=== PATIENT | female | born 1995 | race Caucasian/White ===

== ENCOUNTER 2018-11-23 21:04 | Emergency (ER) | payer MEDICAID ==
[2018-11-23 21:11] VITALS: BP 121/79
[2018-11-23] MEDS ORDERED: DEXAMETHASONE 10 MG/ML VIAL PO STA (21:30)
[2018-11-23] MEDS ORDERED: IPRATROPIUM/ALBUTEROL 3 ML NEB INH STA (21:30)
[2018-11-23] MEDS ORDERED: ALBUTEROL NEB 2.5 MG/3 ML INH STA (21:30)
--- NOTE | 2018-11-23 21:32 | ED Physician Documentation ---
PD HPI DYSPNEA - Stated complaint Stated Complaint: SOA/COUGH - Chief complaint Chief Complaint: Resp - History obtained from History obtained from: Patient - History of Present Illness Timing - onset: Other (Patient is a history of asthma and recently has had increased wheezing and cough. The patient does continue to smoke. Symptoms have worsened over the past several days) Timing - details: Gradual onset Severity Comments: Moderate Inciting event(s): Exposure (ie smoke) Improved by: Inhaler/neb Worsened by: Coughing Associated symptoms: Cough, Wheezing. No: Fever Similar symptoms before: Diagnosis Recently seen: Not recently seen Review of Systems Constitutional: denies: Fever, Fatigue Eyes: denies: Loss of vision Ears: denies: Ear pain Nose: denies: Congestion Throat: denies: Sore throat Cardiac: denies: Chest pain / pressure Respiratory: reports: Dyspnea, Cough, Wheezing Musculoskeletal: denies: Neck pain Neurologic: denies: Generalized weakness Immunocompromised: denies: Chemotherapy PD PAST MEDICAL HISTORY - Past Medical History Past Medical History: Yes Respiratory: Asthma - Past Surgical History Past Surgical History: No - Present Medications Home Medications: Ambulatory Orders Medication Instructions Recorded Confirmed Albuterol Sulfate [Proventil Hfa 11/23/18 Inhaler] busPIRone [Buspar] 11/23/18 - Allergies Allergies/Adverse Reactions: Allergies Allergy/AdvReac Type Severity Reaction Status Date / Time No Known Drug Allergies Allergy Verified 11/23/18 21:11 - Social History Does the pt smoke?: Yes Smoking Status: Current every day smoker Does the pt drink ETOH?: No Substance Use and Type: Marijuana - Immunizations Immunizations are current?: Yes - POLST Patient has POLST: No PD ED PE NORMAL - General General: Alert and oriented X 3, No acute distress - HEENT HEENT: Atraumatic, PERRL, EOMI, Ears normal - Neck Neck: Supple, no meningeal sign - Cardiac Cardiac: RRR, Strong equal pulses - Respiratory Respiratory: No respiratory distress. No: Clear bilaterally (Bilateral expiratory wheezing) - Derm Derm: Normal color - Extremities Extremities: No deformity, No edema - Neuro Neuro: Alert and oriented X 3 - Psych Psych: Normal affect Results - Vitals Vitals: Vital Signs - 24 hr 11/23/18 11/23/18 21:07 21:38 Temperature 36.3 C L Heart Rate 91 98 Respiratory 22 16 Rate Blood Pressure 121/79 O2 Saturation 98 Oxygen O2 Source Room air PD MEDICAL DECISION MAKING - ED course ED course: On reevaluation the patient's much improved and appears appropriate for discharge and ongoing outpatient management. I advised follow-up with primary care. The patient will return to the emergency department for any worsening or any concerns Departure - Departure Disposition: 01 Home, Self Care Clinical Impression: Asthma Qualifiers: Asthma severity: moderate Asthma persistence: persistent Asthma complication type: with acute exacerbation Qualified Code(s): J45.41 - Moderate persistent asthma with (acute) exacerbation Condition: Good Instructions: Asthma Dc Comments: These follow-up with primary care for recheck and reevaluation Please return to the emergency department for worsening symptoms or any concerns
== END 2018-11-23 22:26 | disposition home or self-care (01) ==
LOC: ED 21:04
DX: J45.41 Moderate persistent asthma with (acute) exacerbation (principal); F17.200 Nicotine dependence, unspecified, uncomplicated
CPT/HCPCS: 94640; 94664; 99282; 99283

== ENCOUNTER 2018-11-27 15:36 | Outpatient (CLI) | payer MEDICAID | END 2018-11-27 15:37 | disposition home or self-care (01) | LOC: EMS 15:36 | PROVIDERS: ATTEND Surgery | DX: R06.02 Shortness of breath (principal); J45.909 Unspecified asthma, uncomplicated | CPT/HCPCS: A0425; A0427; A0999 ==

== ENCOUNTER 2018-11-27 16:01 | Emergency (ER) | payer MEDICAID ==
[2018-11-27] MEDS ORDERED: IPRATROPIUM/ALBUTEROL 3 ML NEB INH STA (17:08)
--- NOTE | 2018-11-27 17:08 | ED Physician Documentation ---
PD HPI DYSPNEA - Stated complaint Stated Complaint: SOA - Chief complaint Chief Complaint: Resp - History obtained from History obtained from: Patient - History of Present Illness Timing - onset: Last night (SOA X WEEKS BUT WORSE SINCE METH/HEROIN USE LAST NIGHT. COUGH X 7 DAYS. WAS SOBER FROM METH/HEROIN FOR A WHILE BUT RELAPSED 2 WEEKS AGO. IN [facility] FOR DRUG USE.) Review of Systems Ten Systems: 10 systems reviewed and negative Constitutional: denies: Fever, Chills Cardiac: denies: Chest pain / pressure, Palpitations Respiratory: reports: Dyspnea, Cough GI: denies: Abdominal Pain, Nausea, Vomiting Skin: reports: Reviewed and negative Musculoskeletal: reports: Reviewed and negative Psychiatric: reports: Reviewed and negative PD PAST MEDICAL HISTORY - Past Medical History Past Medical History: Yes Respiratory: Asthma - Past Surgical History Past Surgical History: No - Present Medications Home Medications: Ambulatory Orders Medication Instructions Recorded Confirmed RX: Albuterol Sulfate [Proventil 11/23/18 Hfa Inhaler] RX: busPIRone [Buspar] 11/23/18 RX: Albuterol Sulf [Ventolin Hfa 1 - 2 puffs INH Q4HR PRN #1 inhaler 11/27/18 Inhaler] RX: predniSONE [Deltasone] 20 mg PO [id number] #21 tab 11/27/18 - Allergies Allergies/Adverse Reactions: Allergies Allergy/AdvReac Type Severity Reaction Status Date / Time No Known Drug Allergies Allergy Verified 11/27/18 16:07 - Social History Does the pt smoke?: Yes Smoking Status: Current every day smoker Does the pt drink ETOH?: No Does the pt have substance abuse?: Yes Substance Use and Type: Heroin - Immunizations Immunizations are current?: Yes - POLST Patient has POLST: No PD ED PE NORMAL - Vitals Vital signs reviewed: Yes (HTN/TACHY) - General General: Alert and oriented X 3, Other (ANXIOUS, NO RESP DISTRESS) - HEENT HEENT: PERRL, EOMI - Neck Neck: Supple, no meningeal sign, No bony TTP - Cardiac Cardiac: RRR, No murmur - Respiratory Respiratory: Other (TIGHY/WHEEZY) - Abdomen Abdomen: Soft, Non tender - Back Back: No CVA TTP, No spinal TTP - Derm Derm: Normal color, Warm and dry - Extremities Extremities: No edema, No calf tenderness / cord - Neuro Neuro: Alert and oriented X 3, Normal speech - Psych Psych: Normal mood, Normal affect Results - Vitals Vitals: Vital Signs - 24 hr 11/27/18 11/27/18 11/27/18 16:03 17:12 17:32 Temperature 36.3 C L Heart Rate 152 H 115 H 108 H Respiratory 20 16 18 Rate Blood Pressure 140/106 H 114/76 O2 Saturation 96 97 11/27/18 11/27/18 19:03 19:22 Temperature Heart Rate 105 H 115 H Respiratory 18 20 Rate Blood Pressure 112/61 O2 Saturation 97 Oxygen O2 Source Room air - EKG (time done) 1722 Rate: Rate (enter#) (106) Rhythm: Sinus tachycardia Williams: Normal Intervals: Normal OK QRS: Normal Ischemia: Non specific changes Computer interpretation: Agree with computer - Rads (name of study) 2v chest Radiology: EMP read contemporaneously (normal) PD MEDICAL DECISION MAKING - ED course ED course: 23-year-old woman with history of asthma presents with exacerbation of same. Differential diagnosis also include pulmonary edema related to drugs but there is no evidence of this on chest x-ray. She was feeling better after nebs here and she was given a refill of her albuterol inhaler and some steroids. Departure - Departure Disposition: 01 Home, Self Care Clinical Impression: Asthma Condition: Good Record reviewed to determine appropriate education?: Yes Instructions: Asthma Dc Prescriptions: RX: Albuterol Sulf [Ventolin Hfa Inhaler] 1 - 2 puffs INH Q4HR PRN #1 inhaler PRN Reason: Shortness Of Air/Wheezing RX: predniSONE [Deltasone] 20 mg PO [id number] #21 tab Comments: Call your doctor to arrange a follow-up appointment, make the next available appointment. In the interim, return anytime if worse or if new symptoms develop. Discharge Date/Time: 11/27/18 19:23
--- NOTE | 2018-11-27 18:15 | XRAY Report ---
Reason: DYSPNEA Procedure Date: 11/27/2018 Accession Number: [id number] / [id number] Procedure: XR - Chest 2 View X-Ray CPT Code: 58259 FULL RESULT: EXAM: CHEST RADIOGRAPHY EXAM DATE: 11/27/2018 05:46 PM. CLINICAL HISTORY: Dyspnea for 2 days. Nonproductive cough for 2 weeks. COMPARISON: None. TECHNIQUE: 2 views. FINDINGS: Lungs/Pleura: No focal opacities evident. No pleural effusion. No pneumothorax. Normal volumes. Mediastinum: Heart and mediastinal contours are unremarkable. Other: No bony abnormality noted. IMPRESSION: Normal 2-view chest radiography. RADIA
[2018-11-27] MEDS ORDERED: ALBUTEROL NEB 2.5 MG/3 ML INH STA (18:19)
[2018-11-27] MEDS ORDERED: predniSONE 20 MG TABLET PO STA (18:19)
[2018-11-27 19:23] VITALS: BP 112/61
== END 2018-11-27 19:23 | disposition home or self-care (01) ==
LOC: EDUNIT# → ED 16:01
DX: J45.909 Unspecified asthma, uncomplicated (principal); R00.0 Tachycardia, unspecified; F17.200 Nicotine dependence, unspecified, uncomplicated
CPT/HCPCS: 71046; 93005; 94640; 99283; J7512

== ENCOUNTER 2019-04-01 09:25 | Emergency (ER) | payer MEDICAID ==
[2019-04-01] MEDS ORDERED: IBUPROFEN 800 MG TABLET PO STA (11:28)
[2019-04-01] MEDS ORDERED: ALBUTEROL NEB 2.5 MG/3 ML INH STA (11:28)
--- NOTE | 2019-04-01 12:50 | ED Physician Documentation ---
PD HPI URI - Stated complaint Stated Complaint: THROAT PX - Chief complaint Chief Complaint: Heent - History obtained from History obtained from: Patient - History of Present Illness Timing - onset: Yesterday Timing duration: Days (1) Timing details: Abrupt onset Associated symptoms: Productive cough (Minimal light green phlegm without blood in it.), Other (Cold flashes). No: Fever Contributing factors: No: Sick contact Similar symptoms before: Other (Has history of asthma) Recently seen: Not recently seen - Additional information Additional information: 24-year-old woman who is having difficulty to swallow or Yon and sees white patches in the back of her throat she thinks she may have strep. Her symptoms started yesterday and have gotten progressively worse. She is not taking anything for the symptoms. She does not have a stuffy nose or earache does not feel short of breath but does have a history of asthma last used her inhaler about 2 nights ago. Patient denies history of mono. 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 Review of Systems Constitutional: denies: Fever Ears: denies: Ear pain Nose: denies: Congestion Throat: reports: Sore throat Cardiac: denies: Chest pain / pressure Respiratory: reports: Cough. denies: Dyspnea PD PAST MEDICAL HISTORY - Past Medical History Past Medical History: Yes Respiratory: Asthma - Past Surgical History Past Surgical History: No - Present Medications Home Medications: Ambulatory Orders Medication Instructions Recorded Confirmed RX: Albuterol Sulfate [Proventil 11/23/18 Hfa Inhaler] RX: busPIRone [Buspar] 11/23/18 RX: Albuterol Sulf [Ventolin Hfa 1 - 2 puffs INH Q4HR PRN #1 inhaler 11/27/18 Inhaler] RX: predniSONE [Deltasone] 20 mg PO [id number] #21 tab 11/27/18 RX: Amoxicillin 875 mg PO BID #20 tablet 04/01/19 - Allergies Allergies/Adverse Reactions: Allergies Allergy/AdvReac Type Severity Reaction Status Date / Time No Known Drug Allergies Allergy Verified 04/01/19 09:36 - Social History Does the pt smoke?: Yes Smoking Status: Current every day smoker Does the pt drink ETOH?: No Does the pt have substance abuse?: Yes - Immunizations Immunizations are current?: Yes - POLST Patient has POLST: No PD ED PE NORMAL - Vitals Vital signs reviewed: Yes - General General: Alert and oriented X 3, No acute distress - HEENT HEENT: PERRL, EOMI, Ears normal, Other (Tonsils are enlarged and there is white exudate bilaterally. No scleral icterus) - Neck Neck: Supple, no meningeal sign, No adenopathy - Cardiac Cardiac: RRR, No murmur - Respiratory Respiratory: Other (Diffuse bilateral wheezing) Results - Vitals Vitals: Vital Signs - 24 hr 04/01/19 04/01/19 04/01/19 09:33 11:40 13:14 Temperature 37.9 C H Heart Rate 90 90 108 H Respiratory 14 16 16 Rate Blood Pressure 126/67 120/64 O2 Saturation 95 96 Oxygen O2 Source Room air - Labs Labs: Laboratory Tests 04/01/19 04/01/19 09:37 11:47 Infectious [place] Assay NEGATIVE Group A Strep Rapid Negative PD MEDICAL DECISION MAKING - ED course Complexity details: re-evaluated patient ED course: Lung sounds are improved. She just has a faint wheeze at the right base. She is feeling better with the breathing. Her Monospot was negative and initial strep screen was positive. She does have an exudative pharyngitis and I elected to cover her empirically with amoxicillin until the results of the culture are returned. She is also encouraged to use ibuprofen and salt water gargles to help with the pain. Departure - Departure Disposition: 01 Home, Self Care Clinical Impression: Sore throat Asthma Qualifiers: Asthma severity: mild Asthma persistence: unspecified Asthma complication type: with acute exacerbation Qualified Code(s): J45.901 - Unspecified asthma with (acute) exacerbation Condition: Good Instructions: Sore Throats Self Care, Asthma Dc Follow-Up: Jay Verma MD [Primary Care Provider] - Prescriptions: RX: Amoxicillin 875 mg PO BID #20 tablet Comments: Take the amoxicillin twice a day as prescribed. Do salt water gargles to help relieve sore throat and take ibuprofen 3 to 4 tablets every 8 hours [id number].Follow-up with your primary care provider if the sore throat is not improving. Return if you have difficulty breathing or swallowing. Discharge Date/Time: 04/01/19 13:14
[2019-04-01 13:15] VITALS: BP 120/64
== END 2019-04-01 13:14 | disposition home or self-care (01) ==
LOC: ED 09:25
DX: J02.9 Acute pharyngitis, unspecified (principal); J45.901 Unspecified asthma with (acute) exacerbation; F17.200 Nicotine dependence, unspecified, uncomplicated
CPT/HCPCS: 86308; 87070; 87430; 94640; 99283; A9270

== ENCOUNTER 2020-03-22 19:16 | Emergency (ER) | payer MEDICAID ==
[2020-03-22 19:47] VITALS: BP 152/92
[2020-03-22 20:51] LABS: BASOPHILS # (AUTO) 0.1 10^3/uL (0.0-0.1); BASOPHILS % (AUTO) 0.6 %; EOSINOPHILS # (AUTO) 0.2 10^3/uL (0.0-0.7); EOSINOPHILS % (AUTO) 2.5 %; HGB - HEMOGLOBIN 14.4 g/dL (12.0-16.0); LYMPHOCYTES % (AUTO) 21.8 %; MEAN CORPUSCULAR HEMOGLOBIN 30.6 pg (27.0-31.0); MEAN CORPUSCULAR HGB CONC 34.5 g/dL (32.0-36.0); MEAN CORPUSCULAR VOLUME 88.7 fL (81.0-99.0); MEAN PLATELET VOLUME 8.9 fL (7.9-10.8); MONOCYTES # (AUTO) 0.5 10^3/uL (0.0-1.0); MONOCYTES % (AUTO) 5.7 %; NEUTROPHILS # (AUTO) 6.2 10^3/uL (1.5-6.6); NEUTROPHILS % (AUTO) 69.1 %; PLT - PLATELET COUNT 251 10^3/uL (130-450); RED CELL DISTRIBUTION WIDTH 11.9 % (12.0-15.0)
--- NOTE | 2020-03-22 20:55 | ED Physician Documentation ---
PD HPI MHE - Stated complaint Stated Complaint: MED CLEARANCE FOR DETOX - Chief complaint Chief Complaint: General - History obtained from History obtained from: Patient - History of Present Illness Primary symptom: Medical clearance Timing - onset: Today Contributing factors: Substance abuse - drugs Similar symptoms before: Diagnosis (heroin and methamphetamine abuse.) Recently seen: Not recently seen - Additional information Additional information: 25-year-old female with a history of substance abuse including meth and heroin has coming to the emergency department today seeking medical clearance to go to a detox facility. She has been to this detox facility previously and was successful with this for over a year. She states that she has been using both methamphetamine and heroin today and she does not usually have a significant problem with withdrawal. She is not currently ill. She does have a history of asthma and has an inhaler that she uses on a regular basis. Review of Systems Constitutional: denies: Fever, Chills, Myalgias, Fatigue Eyes: denies: Decreased vision Ears: denies: Ear pain Nose: denies: Congestion Throat: denies: Sore throat Cardiac: denies: Chest pain / pressure, Palpitations Respiratory: reports: Wheezing. denies: Dyspnea, Cough GI: denies: Abdominal Pain, Nausea, Vomiting : denies: Dysuria, Frequency Skin: denies: Rash Musculoskeletal: denies: Neck pain, Back pain, Extremity pain Neurologic: denies: Generalized weakness, Focal weakness, Numbness PD PAST MEDICAL HISTORY - Past Medical History Respiratory: Asthma - Past Surgical History Past Surgical History: No - Present Medications Home Medications: Ambulatory Orders Medication Instructions Recorded Confirmed Albuterol Sulf [Ventolin Hfa 1 - 2 puffs INH Q4HR PRN #1 inhaler 11/27/18 Inhaler] - Allergies Allergies/Adverse Reactions: Allergies Allergy/AdvReac Type Severity Reaction Status Date / Time No Known Drug Allergies Allergy Verified 04/01/19 09:36 - Social History Does the pt smoke?: Yes Smoking Status: Current every day smoker Does the pt drink ETOH?: No Does the pt have substance abuse?: Yes - Immunizations Immunizations are current?: Yes - POLST Patient has POLST: No PD ED PE NORMAL - Vitals Vital signs reviewed: Yes (Tachycardic and hypertensive) - General General: Alert and oriented X 3, No acute distress, Well developed/nourished - HEENT HEENT: Atraumatic, PERRL, EOMI, Ears normal, Moist mucous membranes, Pharynx benign, Dentition benign - Neck Neck: Supple, no meningeal sign, No bony TTP - Cardiac Cardiac: No murmur, Other (Tachycardic to 115) - Respiratory Respiratory: No respiratory distress, Other (Scattered wheezes bilaterally) - Abdomen Abdomen: Soft, Non tender - Back Back: No CVA TTP, No spinal TTP - Derm Derm: Normal color, Warm and dry, No rash - Extremities Extremities: No deformity, No edema, No calf tenderness / cord - Neuro Neuro: Alert and oriented X 3, pedorthist 2-12 intact, No motor deficit, No sensory deficit, Normal speech Eye Opening: Spontaneous Motor: Obeys Commands Verbal: Oriented GCS Score: 15 - Psych Psych: Normal mood, Normal affect Results - Vitals Vitals: Vital Signs - 24 hr 03/22/20 19:43 Temperature 36.7 C Heart Rate 119 H Respiratory 18 Rate Blood Pressure 152/92 H O2 Saturation 97 Oxygen O2 Source Room air - Labs Labs: Laboratory Tests 03/22/20 03/22/20 03/22/20 20:45 20:45 21:06 WBC 9.0 RBC 4.70 Hgb 14.4 Hct 41.7 MCV 88.7 MCH 30.6 MCHC 34.5 RDW 11.9 L Plt Count 251 MPV 8.9 Neut # (Auto) 6.2 Lymph # (Auto) 2.0 [place] # (Auto) 0.5 Eos # (Auto) 0.2 Baso # (Auto) 0.1 Absolute Nucleated RBC 0.00 Nucleated RBC % 0.0 Sodium 139 Potassium 3.5 Chloride 105 Carbon Dioxide 25 Anion Gap 9.0 BUN 11 Creatinine 0.7 Estimated GFR (MDRD) 104 Glucose 115 H Calcium 9.5 Total Bilirubin 0.6 AST 24 ALT 22 Alkaline Phosphatase 64 Total Protein 7.6 Albumin 4.3 Globulin 3.3 Albumin/Globulin Ratio 1.3 Lipase 26 Urine Color Urine Clarity Urine pH Ur Specific [place] Urine Protein Urine Glucose (UA) Urine Ketones Urine Occult Blood Urine Nitrite Urine Bilirubin Urine Urobilinogen Ur Leukocyte Esterase Ur Microscopic Review Urine Culture Comments Urine HCG, Qual Urine Opiates Screen POSITIVE H Ur Oxycodone Screen NEGATIVE Urine Methadone Screen NEGATIVE Ur Propoxyphene Screen NEGATIVE Ur Barbiturates Screen NEGATIVE Ur Tricyclics Screen NEGATIVE Ur Phencyclidine Scrn NEGATIVE Ur Amphetamine Screen POSITIVE H U Methamphetamines Scrn NEGATIVE U Benzodiazepines Scrn NEGATIVE Urine Cocaine Screen NEGATIVE U Cannabinoids Screen NEGATIVE Ethyl Alcohol < 5.0 03/22/20 21:06 WBC RBC Hgb Hct MCV MCH MCHC RDW Plt Count MPV Neut # (Auto) Lymph # (Auto) [place] # (Auto) Eos # (Auto) Baso # (Auto) Absolute Nucleated RBC Nucleated RBC % Sodium Potassium Chloride Carbon Dioxide Anion Gap BUN Creatinine Estimated GFR (MDRD) Glucose Calcium Total Bilirubin AST ALT Alkaline Phosphatase Total Protein Albumin Globulin Albumin/Globulin Ratio Lipase Urine Color YELLOW Urine Clarity CLEAR Urine pH 6.5 Ur Specific [place] 1.020 Urine Protein NEGATIVE Urine Glucose (UA) NEGATIVE Urine Ketones NEGATIVE Urine Occult Blood NEGATIVE Urine Nitrite NEGATIVE Urine Bilirubin NEGATIVE Urine Urobilinogen 0.2 (NORMAL) Ur Leukocyte Esterase NEGATIVE Ur Microscopic Review NOT INDICATED Urine Culture Comments NOT INDICATED Urine HCG, Qual NEGATIVE Urine Opiates Screen Ur Oxycodone Screen Urine Methadone Screen Ur Propoxyphene Screen Ur Barbiturates Screen Ur Tricyclics Screen Ur Phencyclidine Scrn Ur Amphetamine Screen U Methamphetamines Scrn U Benzodiazepines Scrn Urine Cocaine Screen U Cannabinoids Screen Ethyl Alcohol PD MEDICAL DECISION MAKING - ED course Complexity details: reviewed results, re-evaluated patient, considered differential, d/w patient ED course: 25-year-old female who appears to be an excellent candidate for drug treatment is medically cleared to go to drug treatment. She has no symptoms of COVID-19. Departure - Departure Disposition: 01 Home, Self Care Clinical Impression: Drug abuse and dependence Asthma Qualifiers: Asthma severity: mild Asthma persistence: intermittent Asthma complication type: uncomplicated Qualified Code(s): J45.20 - Mild intermittent asthma, uncomplicated Condition: Stable Instructions: ED Reactive Airway Disease Follow-Up: Your, doctor [Other] Comments: Porsche Mendez 25-year-old female date of 1995 has been medically cleared from our institution for drug treatment. She has no signs or symptoms of COVID-19. She is afebrile saturating 97%
[2020-03-22 21:03] LABS: ALBUMIN 4.3 g/dL (3.2-5.5); ALBUMIN/GLOBULIN RATIO 1.3 (1.0-2.2); ALKALINE PHOSPHATASE 64 IU/L (42-121); ALT ALANINE AMINOTRANSFERASE 22 IU/L (10-60); AST ASPARTATE AMINOTRANSFERASE 24 IU/L (10-42); BILIRUBIN,TOTAL 0.6 mg/dL (0.2-1.0); BUN - BLOOD UREA NITROGEN 11 mg/dL (6-20); CALCIUM 9.5 mg/dL (8.5-10.3); CARBON DIOXIDE - CO2 25 mmol/L (21-32); CHLORIDE 105 mmol/L (101-111); CREATININE 0.7 mg/dL (0.4-1.0); GLUCOSE 115 mg/dL (70-100); LIPASE 26 U/L (22-51); SODIUM 139 mmol/L (135-145); TOTAL PROTEIN 7.6 g/dL (6.7-8.2)
[2020-03-22 21:27] LABS: MUDS CUTOFF CONCENTRATIONS CUTOFF CONC BELOW:
[2020-03-22 21:29] LABS: BILIRUBIN,URINE NEGATIVE (NEGATIVE); GLUCOSE, URINE (UA) NEGATIVE (NEGATIVE); KETONES,URINE (UA) NEGATIVE (NEGATIVE); LEUKOCYTE ESTERASE, URINE NEGATIVE (NEGATIVE); NITRITE,URINE NEGATIVE (NEGATIVE); OCCULT BLOOD,URINE NEGATIVE (NEGATIVE); PH,URINE 6.5 PH (5.0-7.5); PROTEIN,URINE NEGATIVE (NEGATIVE); UROBILINOGEN,URINE 0.2 (NORMAL) E.U./dL (NORMAL)
[2020-03-22 21:31] LABS: CLARITY,URINE CLEAR (CLEAR); HCG UR QUAL NEGATIVE
[2020-03-22 21:41] LABS: AMPHETAMINE SCREEN,URINE POSITIVE (NEGATIVE); BENZODIAZEPINES SCREEN, URINE NEGATIVE (NEGATIVE); COCAINE SCREEN URINE NEGATIVE (NEGATIVE); METHADONE SCREEN, URINE NEGATIVE (NEGATIVE); METHAMPHETAMINES SCREEN, URINE NEGATIVE (NEGATIVE); OPIATE SCREEN, URINE POSITIVE (NEGATIVE); OXYCODONE SCREEN, URINE NEGATIVE (NEGATIVE); PROPOXYPHENE SCREEN, URINE NEGATIVE (NEGATIVE); TRICYCLIC ANTIDEPRESSANT,URINE NEGATIVE (NEGATIVE)
== END 2020-03-22 22:07 | disposition home or self-care (01) ==
LOC: ED 19:16
DX: Z02.89 Encounter for other administrative examinations (principal); F11.20 Opioid dependence, uncomplicated; F15.20 Other stimulant dependence, uncomplicated; J45.20 Mild intermittent asthma, uncomplicated; F17.200 Nicotine dependence, unspecified, uncomplicated
CPT/HCPCS: 36415; 80053; 80306; 80320; 81001; 81003; 81025; 83690; 85025; 87086; 99281; 99283